=== PATIENT | female | born 1960 | race Caucasian/White ===

== ENCOUNTER 2019-05-09 13:32 | Emergency (ER) | payer OTHER ==
[~2019-05-09] VITALS: Ht 167.6 cm; Wt 83.5 kg
[2019-05-09 13:57] VITALS: BP 187/97
[2019-05-09] MEDS ORDERED: PILO5TAB PO (15:02)
== END 2019-05-09 15:37 | disposition home or self-care (01) ==
LOC: ER 13:33
DX: R59.9 Enlarged lymph nodes, unspecified (principal); Z88.0 Allergy status to penicillin; Z88.2 Allergy status to sulfonamides; Z88.5 Allergy status to narcotic agent; Z88.1 Allergy status to other antibiotic agents; Z79.899 Other long term (current) drug therapy
CPT/HCPCS: 99283